=== PATIENT | female | born 1940 | race Asian ===

== ENCOUNTER 2017-06-29 04:21 | Emergency (ER) | payer OTHER, MEDICAID ==
[~2017-06-29] VITALS: Ht 144.8 cm; Wt 50.0 kg
[~2017-06-29 04:21] MED LIST: AMLO2.5T PO; ASPI-1198 PO; CALC1TAB15 PO
[2017-06-29] MEDS ORDERED: ATOR20TA86 PO (04:28)
[2017-06-29] MEDS ORDERED: LOSA25TA21 PO (04:28)
[2017-06-29 05:06] LABS: BASOPHILS # (AUTO) 0.04 K/uL (0.00-0.20); BASOPHILS % (AUTO) 0.5 % (0.0-2.0); EOSINOPHILS % (AUTO) 1.28 % (1.0-6.0); HEMATOCRIT 42.5 % (36-46); HEMOGLOBIN 14.2 g/dL (12.0-16.0); LYMPHOCYTES # (AUTO) 2.3 K/uL (1.0-4.8); LYMPHOCYTES % (AUTO) 29.2 % (22.0-44.0); MEAN CORPUSCULAR HEMOGLOBIN 29.7 pg (26.0-34.0); MEAN CORPUSCULAR HGB CONC 33.4 G/dL (31.0-37.0); MEAN CORPUSCULAR VOLUME 89 fL (80-100); MONOCYTES # (AUTO) 0.5 K/uL (0.1-1.0); MONOCYTES % (AUTO) 6.6 % (2.0-9.0); NEUTROPHILS # (AUTO) 4.8 K/uL (1.8-7.7); NEUTROPHILS % (AUTO) 62.4 % (40.0-70.0); PLATELET COUNT (AUTO) 293 K/uL (150-450); RED BLOOD CELL COUNT(AUTO) 4.78 MIL/uL (4.00-5.20); RED CELL DISTRIBUTION WIDTH 14.3 % (11.5-14.5); WHITE BLOOD COUNT (AUTO) 7.7 K/uL (4.5-11.0)
[2017-06-29 05:13] LABS: ANION GAP 9 mmol/L (8-16); CALCIUM, TOTAL 9.7 mg/dL (8.8-10.5); CARBON DIOXIDE 28 mmol/L (22-29); CHLORIDE 103 mmol/L (98-107); CREATININE 0.82 mg/dL (0.60-1.30); GLOMERULAR FILTR. RATE CALC > 60 mL/min (>60); POTASSIUM 4.1 mmol/L (3.5-5.1); SODIUM SERUM 140 mmol/L (136-145); UREA NITROGEN, BLOOD 13 mg/dL (7-18)
[2017-06-29 05:19] LABS: ALANINE AMINOTRANSFERASE 84 U/L (12-78); ALBUMIN 4.6 g/dL (3.4-5.0); ASPARTATE AMINOTRANSFERASE 108 U/L (15-37); BILIRUBIN,TOTAL 0.6 mg/dL (0.1-1.0); TOTAL PROTEIN, SERUM 8.6 g/dL (6.4-8.2)
[2017-06-29 07:46] VITALS: BP 149/82
[2017-06-29] MEDS: KETOROLAC TROMETHAMINE 60 MG/2 ML VIAL IM ONE ×2 (08:19→08:25)
== END 2017-06-29 08:41 | disposition home or self-care (01) ==
LOC: EMS 04:22
DX: S29.012A Strain of muscle and tendon of back wall of thorax, initial encounter (principal); E78.00 Pure hypercholesterolemia, unspecified; I10 Essential (primary) hypertension; Z88.6 Allergy status to analgesic agent; Z79.82 Long term (current) use of aspirin; X58.XXXA Exposure to other specified factors, initial encounter; Y93.89 Activity, other specified; Y92.89 Other specified places as the place of occurrence of the external cause; Y99.8 Other external cause status
CPT/HCPCS: 93005; 99285; J1885